=== PATIENT | male | born 1975 | race Two or more races ===

== ENCOUNTER 2025-03-25 16:47 | Emergency (ER) | payer MEDICARE, MEDICAID, SELFPAY ==
[2025-03-25 16:48] VITALS: BP 122/77; PULSE 103; RESP 18; TEMP 36.4; O2SAT 96
[2025-03-25 16:49] VITALS: BMI 30.4
[2025-03-25 16:54] VITALS: PULSE 102; RESP 18; O2SAT 98
--- NOTE | 2025-03-25 18:08 | EKG_ITS ---
[facility] Test Date: 2025-03-25 Pat Name: JEANE MILTON Department: Room: - Gender: Male Supervisor [employer]: : 1975 Requested By: Rubén Lugo Order Number: [id number] Reading MD: Rubén Lugo Measurements Intervals [place] Rate: 104 P: 18 [place]: 150 QRS: 86 QRSD: 153 T: -8 QT: 367 QTc: 484 Interpretive Statements SINUS TACHYCARDIA RIGHT BUNDLE BRANCH BLOCK [120+ ms QRS DURATION, UPRIGHT V1, 40+ ms S IN I/aVL/V4/V5/V6] Compared to ECG 03/04/2024 15:49:55 Left posterior fascicular block no longer present /store/S0/[id number]
--- NOTE | 2025-03-25 18:14 | PD.EDWEAK ---
ED Weakness RME/HPI General Chief complaint: Weakness Stated complaint: LOW BLOOD PRESSURE Time Seen by Provider: 03/25/25 18:15 Arrival date/time: 03/25/25 16:47 RME / HPI RME / HPI Narrative: See [facility] for Dr. Grande's HPI documentation. Related Data Home Medications ?Medication ?Instructions ?Recorded ?Confirmed clozapine 100 mg tablet 200 mg PO DAILY 10/23/23 03/15/24 lisinopril 2.5 mg tablet 2.5 mg PO DAILY 10/23/23 10/23/23 metformin 500 mg tablet 500 mg PO BID 10/23/23 03/15/24 propranolol 10 mg tablet 10 mg PO BID 10/23/23 10/23/23 sertraline 50 mg tablet 50 mg PO DAILY 10/23/23 03/15/24 Previous Rx's ?Medication ?Instructions ?Recorded diazepam 5 mg tablet 5 mg PO BID PRN agitaion #6 tabs 03/05/24 albuterol sulfate 90 mcg/actuation 2 puff inhalation Q6H PRN 03/25/25 aerosol inhaler shortness of breath or wheezing #1 unit magnesium oxide 400 mg PO BID #60 tabs 03/25/25 prednisone 50 mg tablet 50 mg PO QDAY #3 tabs 03/25/25 Allergies Allergy/AdvReac Type Severity Reaction Status Date / Time diphenhydramine Allergy Severe SHAKY AND Verified 03/25/25 16:57 RASH Review of Systems Review of Systems Systems Reviewed: All systems reviewed, normal except as documented Past Medical History Past Medical History CARDIAC: Positive Cardiac Disorders, Hypercholesterolemia and Hypertension; Negative Congestive Heart Failure RESPIRATORY: Negative Chronic Obstructive Pulmonary Disease (COPD) or Asthma GENITOURINARY: Negative Renal Disease ENDOCRINE: Positive Diabetes Mellitus Type 2; Negative Diabetes Mellitus Type 1 HEMATOLOGIC: Negative Sickle Cell Disease PSYCHO/SOCIAL: Positive Schizophrenia Social History SMOKING STATUS: Never smoker ED Exam Narrative Physical exam: See [facility] for Dr. Grande's physical exam documentation. Course Course Course Narrative: CXR is ordered for determining the etiology of weakness. Quality Measures none Orders Category Date Time Status Bedside COVID-19 Antigen Test NOW Care 03/25/25 18:20 Completed Bedside Influenza A&B Antigen Test NOW Care 03/25/25 18:20 Completed EKG (ED ONLY) *Do not use* NOW Care 03/25/25 18:08 Completed Orthostatic Vitals NOW Care 03/25/25 18:20 Completed Saline [Insert IV] NOW Care 03/25/25 18:[address] head/brain wo con Stat Exams 03/25/25 18:21 Completed EKG (ED Only) Stat Exams 03/25/25 18:08 Draft XR chest 1V portable Stat Exams 03/25/25 18:21 Completed Alcohol, Blood Medical Stat Lab 03/25/25 18:45 Completed BNP [B-Type Natriuretic Peptide] Stat Lab 03/25/25 18:45 Completed Bilirubin,Direct Stat Lab 03/25/25 18:45 Completed Blood Culture (Lab) Stat Lab 03/25/25 18:48 Results CBC Stat Lab 03/25/25 18:45 Completed CK [Creatine Kinase] Stat Lab 03/25/25 18:45 Completed CMP [Comprehensive Metabolic Panel] Stat Lab 03/25/25 18:45 Completed CRP [C-Reactive Protein] Stat Lab 03/25/25 18:45 Completed D-Dimer Stat Lab 03/25/25 18:45 Completed ESR [Sed Rate (ESR)] Stat Lab 03/25/25 18:45 Completed Lactate (Lactic Acid) Stat Lab 03/25/25 18:45 Completed Lactic Acid, 3 HR Stat Lab 03/25/25 22:20 Completed Lipase Stat Lab 03/25/25 18:45 Completed Magnesium Stat Lab 03/25/25 18:45 Completed Procalcitonin Stat Lab 03/25/25 18:45 Completed Thyroid Stimulating Hormone Stat Lab 03/25/25 18:45 Completed Troponin I Stat Lab 03/25/25 18:45 Completed Azithromycin Po [Zithromax PO] Med 03/25/25 21:41 Discontinued 500 mg PO X1 ONE Magnesium Sulfate 2 GM Ivpb [Magnesium Sulfate Ivpb] Med 03/25/25 19:41 Discontinued 2 gm in 50 ml IV X1 MethylPREDNISolone.* [SoluMEDROL Inj] Med 03/25/25 21:46 Discontinued 125 mg IVP X1 ONE Ondansetron Inj [Zofran Inj] Med 03/25/25 19:41 Discontinued 4 mg IVP X1 ONE Sodium Chloride 0.9% 1000 ml [Ns] 1,000 ml Med 03/25/25 19:41 Discontinued IV 999 mls/hr Sodium Chloride 0.9% 1000 ml [Ns] 1,000 ml Med 03/25/25 19:41 Discontinued IV 999 mls/hr Vital Signs Vital signs: Vital Signs Temperature 97.6 F 03/25/25 16:48 Pulse Rate 103 H 03/25/25 16:48 Respiratory Rate 18 03/25/25 16:48 Blood Pressure 122/77 03/25/25 16:48 Pulse Oximetry (%) 96 03/25/25 16:48 Oxygen Delivery Method Room Air 03/25/25 16:48 Weakness MDM Narrative MDM Narrative:: This section includes all my notes and documentations, including HPI, PE, and ED course. Rubén Grande MD HPI: 49yo male BIBA with generalized weakness throughout today. When patient's blood pressure was checked today, it was noted to be low. No fever or vomiting. No other complaints reported. ROS: All negative except as documented in HPI. Physical Exam: General: Alert and oriented X 3. Coughing noted. Eyes: Conjunctivae and lids clear. PERRL. EOMI. ENT: No nasal congestion. Neck: Supple. Heart: RRR. Lungs: No respiratory distress. Good air movement with rales. Abdomen: Soft and nontender. Normal bowel sounds. No distension. No rebound or guarding. Skin: Warm and dry. Neuro: Alert and oriented X 3. Cranial nerves II through grossly normal. No peripheral motor deficits. I reviewed all diagnostic test results. My interpretation of the EKG is sinus tachycardia with nonspecific ST-T changes. My interpretation of the chest x-ray is infiltrates. My review of the CT head report is NAD. Blood tests remarkable for WBC 10.9, ESR 49, Lactic Acid 3.3, Mg 1.4. At this point, diagnoses include: Pneumonia Hypomagnesemia Treatment here included: Magnesium IV fluid Zofran Azithromycin Solumedrol Significant improvement noted. Recommended outpatient management. Based on my best medical judgment, made decision no further evaluation or treatment indicated at this time. Patient understands and agrees to the discharge instructions customized and printed, see below. Discharge instructions from Dr. Grande: --After extensive evaluation, there is no life-threatening condition. Such as stroke or heart attack. --But your diagnoses include pneumonia and low magnesium level and dehydration. --No physical exertion for 3 days to help rest the lungs. ?No smoking or exposure to smoking or pets or dust or humidity. --Zithromax to kill the germs causing the pneumonia. --Prednisone to help decrease the swelling in the airways. --Albuterol 2 puffs every 4-6 hours as needed for cough or shortness of breath. --Take magnesium pills as prescribed and increase food rich in magnesium. Such as green and leafy vegetables and peanuts and cashews and almonds. --See a private doctor on 03/29/2025 for recheck and further care. Ask to review all test results and official radiology reports, to make sure you receive all necessary follow-ups and monitoring, including repeat magnesium level. Ask for help until you are completely better. --Seek immediate medical care with worsening or with any concerns. Rubén Grande MD Patient data External records reviewed:: [facility] previous records (Per chart review, patient was seen here on 03/15/25 for SI.) Clinical information provided by:: patient Social determinants that could affect healthcare access:: housing (resides in assisted living) Patient has the following chronic illnesses:: schizophrenia, DM, HTN, HLD How is presenting disease/condition affected by chronic disease/condition?: uneffected by Evaluation data The following diagnostics were reviewed and interpreted by me:: lab results, radiology exam(s) and EKG tracing(s) (My interpretation of the EKG is: Sinus tachycardia (104 bpm) with nonspecific ST-T changes. Rubén Grande MD) Lab and/or radiology exams considered but not ordered:: none Interpretation Summary: I reviewed all diagnostic test results. My interpretation of the EKG is sinus tachycardia with nonspecific ST-T changes. My interpretation of the chest x-ray is atelectasis versus pneumonia left base. My review of the CT head report is NAD. Blood tests remarkable for WBC 10.9, ESR 49, Lactic Acid 3.3, Mg 1.4. Medications / Prescriptions Medications or Prescriptions considered but not ordered:: none Medication administrations:: Medication Administration History Discontinued Medications Azithromycin (Azithromycin 250 Mg Tablet) 500 mg PO X1 ONE Stop: 03/25/25 21:42 Last Admin: 03/25/25 22:23 Dose: 500 mg Documented By: ERIC Magnesium Sulfate (Magnesium Sulfate Ivpb) 2 gm in 50 mls @ 25 mls/hr IV X1 ONE Stop: 03/25/25 21:40 Last Infusion: 03/25/25 22:27 Dose: Infused Documented By: Admin: 03/25/25 19:51 Dose: 25 mls/hr Documented By: ERIC Sodium Chloride (Ns) 1,000 mls @ 999 mls/hr IV .Q1H1M ONE Stop: 03/25/25 20:41 Last Infusion: 03/25/25 22:28 Dose: Infused Documented By: Admin: 03/25/25 19:50 Dose: 999 mls/hr Documented By: SF Sodium Chloride (Ns) 1,000 mls @ 999 mls/hr IV .Q1H1M ONE Stop: 03/25/25 20:41 Last Infusion: 03/25/25 22:28 Dose: Infused Documented By: Admin: 03/25/25 19:51 Dose: 999 mls/hr Documented By: SF Methylprednisolone Sodium Succinate (Methylprednisolone Sod Succ 62.5 Mg/Ml 2ml Vial) 125 mg IVP X1 ONE Stop: 03/25/25 21:47 Last Admin: 03/25/25 22:24 Dose: 125 mg Documented By: ERIC Ondansetron HCl (Ondansetron Inj 2 Mg/Ml Inj 2 Ml) 4 mg IVP X1 ONE; Protocol Stop: 03/25/25 19:42 Last Admin: 03/25/25 19:51 Dose: 4 mg Documented By: ERIC Magnesium, IV fluid, Zofran, Solumedrol, Azithromycin Consultations Consultation(s) initiated? (list below): No Diagnosis Weakness Differential Diagnosis: acute myocardial infarction, anemia, hypoglycemia, hypothyroidism, rhabdomyolysis, sepsis and dehydration Most likely diagnosis given after review of the tests above:: Pneumonia Hypomagnesemia Admission Indicated Admission indicated?: not indicated Explain why admission is indicated or not indicated:: With significant improvement and no condition needing emergent intervention, there was no indication for admission. Admission Request Was there a request for admission?: No Disposition Plan Disposition Plan: Discharge Discharge Attestation Discharge Attestation: The patient and all family members were given an opportunity to ask questions and understood the discharge instructions. Discharge instructions specifically effects, indications for sooner follow up or return to the emergency department, and the expected course of current diagnosis. Patient condition: Stable Discharge Plan Plan Patient Disposition: HOME (Self Care) Prescriptions/Referrals Prescriptions/Med Rec: New prednisone 50 mg tablet 50 mg PO QDAY Qty: 3 0RF albuterol sulfate 90 mcg/actuation HFA aerosol inhaler 2 puff inhalation Q6H PRN (Reason: shortness of breath or wheezing) Qty: 1 0RF magnesium oxide 400 mg magnesium tablet 400 mg PO BID Qty: 60 0RF No Action sertraline 50 mg tablet 50 mg PO DAILY lisinopril 2.5 mg tablet 2.5 mg PO DAILY metformin 500 mg tablet 500 mg PO BID clozapine 100 mg tablet 200 mg PO DAILY Rx Instructions: AT BEDTIME propranolol 10 mg tablet 10 mg PO BID diazepam 5 mg tablet 5 mg PO BID PRN (Reason: agitaion) Qty: 6 0RF Referrals: No Primary/Family,Physician [Primary Care Provider] - In 1 week Problem List Clinical Impression: Pneumonia, Hypomagnesemia Patient/Caregiver Discharge Instructions Discharge Activity: activity as tolerated Education Materials: Magnesium (Blood), ED Pneumonia (Adult) Additional Instructions: Discharge instructions from Dr. Grande: --After extensive evaluation, there is no life-threatening condition. Such as stroke or heart attack. --But your diagnoses include pneumonia and low magnesium level and dehydration. --No physical exertion for 3 days to help rest the lungs. ?No smoking or exposure to smoking or pets or dust or humidity. --Zithromax to kill the germs causing the pneumonia. --Prednisone to help decrease the swelling in the airways. --Albuterol 2 puffs every 4-6 hours as needed for cough or shortness of breath. --Take magnesium pills as prescribed and increase food rich in magnesium. Such as green and leafy vegetables and peanuts and cashews and almonds. --See a private doctor on 03/29/2025 for recheck and further care. Ask to review all test results and official radiology reports, to make sure you receive all necessary follow-ups and monitoring, including repeat magnesium level. Ask for help until you are completely better. --Seek immediate medical care with worsening or with any concerns. Print Language: Bolivian Stand Alone Forms: Mari[employer] Award Info., Patient Portal Info Letter
--- NOTE | 2025-03-25 18:21 | XR_ITS ---
Examination: AP chest single view Technique: AP portable upright chest single view Date and time: March 25, 2025, 1845 hrs., Comparison March 04, 2024 Indications: Shortness of breath chest pain today Findings: Atelectasis versus pneumonia left base Normal heart size Right lung clear. The osseous structures are intact. Impression: Atelectasis versus pneumonia left base, clinical correlation advised.
--- NOTE | 2025-03-25 18:21 | XR_ITS ---
Examination: CT brain head without contrast. 2-D sagittal coronal reconstructions Date and time of exam:March [id number] HRS., Comparison March 04, 2024 Indications: Syncopal episode today, hypertension and headache CTDI: vol (mGy):50.8 DLP: (mGycm):1174 Technique: Multiple CT axial sections of the brain have been obtained, 5 mm slice thickness. Contrast has not been administered. 2-D sagittal, coronal reconstructions have been obtained Low dose protocols were performed. One or more of the following dose reduction techniques were used; automated exposure control, adjustment of the mA and/or KV according to patient size, use of iterative reconstruction technique. Findings: No significant ventricular enlargement. Intra-axial or extra-axial hemorrhage density is not seen. No mass effect or midline shift Basal cisterns are not remarkable. Fourth ventricle is midline. Cranial vault intact. Chronic ethmoid maxillary antral sinusitis Impression: Negative for acute hemorrhage, mass effect or midline shift
[2025-03-25 19:05] LABS: Lactate (Lactic Acid) 3.3 mMol/L (0.4-2.0)
[2025-03-25 19:13] LABS: Basophils # (Auto) 0.0 Thou/mm3 (0.0-0.2); Basophils % (Auto) 0 % (0-2.5); Eosinophils # (Auto) 0.0 Thou/mm3 (0.0-0.5); Eosinophils % (Auto) 0 % (0-10); Hematocrit 33.8 % (41.0-53.0); Hemoglobin 10.9 g/dL (13.5-16.0); Immature Granulocytes Auto 0.06 Thou/mm3 (0.00-0.00); Lymphocytes # (Auto) 2.1 Thou/mm3 (1.0-4.8); Lymphocytes % (Auto) 19 % (10-50); Mean Corpuscular HGB Conc 32.2 g/dl (31.0-37.0); Mean Corpuscular Hemoglobin 26.2 pg (25.0-35.0); Mean Corpuscular Volume 81 fL (80-100); Monocytes # (Auto) 0.8 Thou/mm3 (0.0-0.8); Monocytes % (Auto) 7 % (0-12); Neutrophils # (Auto) 7.9 Thou/mm3 (1.8-7.7); Neutrophils % (Auto) 72 % (37-80); Nucleated Red Blood Cell # 0.00 Thou/mm3 (0.00-0.00); Nucleated Red Blood Cell % 0 /100 WBC (0); Platelet Count 267 Thou/mm3 (140-440); RDW Standard Deviation 46.7 fL (35.1-43.9); Red Blood Count 4.16 Miln/mm3 (4.50-5.90); White Blood Count 10.9 Thou/mm3 (3.8-10.6)
[2025-03-25 19:20] LABS: Sed Rate (ESR) 49 mm/hr (0-20)
[2025-03-25 19:23] LABS: B-Type Natriuretic Peptide 41 pg/mL (0-100)
[2025-03-25 19:32] VITALS: BP 122/102; BP 152/97; BP 156/97; PULSE 109; PULSE 98; PULSE 99
[2025-03-25 19:35] LABS: Alanine Aminotransferase 13 U/L (10-49); Albumin, Serum 4.1 gm/dL (3.5-5.0); Albumin/Globulin Ratio 1.9 (1.2-2.2); Alcohol, Blood Medical < 3.0 mg/dL (0-10.0); Alkaline Phosphatase 142 U/L (46-116); Anion Gap 14 (7-16); Aspartate Amino Transferase 12 U/L (0-34); BUN/Creatinine Ratio 15 Ratio (12-20); Bilirubin,Direct < 0.1 mg/dL (0.0-0.3); Bilirubin,Total 0.3 mg/dL (0.3-1.2); Blood Urea Nitrogen 18 mg/dL (9-23); C-Reactive Protein < 0.5 mg/dL (0.0-0.9); Calcium 9.4 mg/dL (8.3-10.6); Calcium (Corrected) 9.4 mg/dL (8.5-10.1); Carbon Dioxide 22.5 mMol/L (20.0-31.0); Chloride 109 mMol/L (98-107); Creatine Kinase 150 U/L (34-171); Creatinine (Component) 1.2 mg/dL (0.6-1.3); Estimated Creatinine Clearance 79.7 mL/min (>60); Globulin 2.2 gm/dL (2.3-3.5); Glucose 249 mg/dL (74-106); Lipase 30 U/L (12-53); Magnesium 1.4 mg/dL (1.6-2.6); Osmolality,Calculated 298 (275-295); Potassium 4.3 mMol/L (3.4-5.1); Procalcitonin 0.08 ng/ml (0.0-0.49); Sodium 145 mMol/L (136-145); Thyroid Stimulating Hormone 0.85 uIU/mL (0.55-4.78); Total Protein 6.3 gm/dL (5.7-8.2); Troponin I < 0.020 ng/mL (0.0-0.045); eGFR > 60 See Note
[2025-03-25 19:45] LABS: D-Dimer < 250 ng/mL (<600)
[2025-03-25] MEDS: SODIUM CHLORIDE 0.9% 1000 ML 1,000 ML 999 ML IV ×2 (19:50→19:51)
[2025-03-25] MEDS: Magnesium Sulfate 2 GM Ivpb 2 GM/50 ML BAG IV (19:51)
[2025-03-25] MEDS: ONDANSETRON INJ 2 MG/ML INJ 2 ML 4 MG IVP (19:51)
[2025-03-25 20:48] VITALS: BP 154/94; PULSE 99; RESP 19; TEMP 36.4; O2SAT 98
[2025-03-25 22:00] LABS: Reflex Lactate? Y
[2025-03-25] MEDS: AZITHROMYCIN 250 MG TABLET 500 MG PO (22:23)
[2025-03-25] MEDS: MethylPREDNISolone SOD SUCC 62.5 MG/ML 2ML VIAL 125 MG IVP (22:24)
[2025-03-25 22:30] VITALS: BP 133/94; PULSE 99; RESP 19; TEMP 36.6; O2SAT 98
[2025-03-25 22:36] LABS: Lactic Acid, 3 HR 1.8 mMol/L (0.4-2.0)
== END 2025-03-25 22:41 | disposition home or self-care (01) ==
PROVIDERS: Emergency Provider Emergency Medicine
DX: J18.9 Pneumonia, unspecified organism (principal); E83.42 Hypomagnesemia; R00.0 Tachycardia, unspecified; I10 Essential (primary) hypertension; E11.9 Type 2 diabetes mellitus without complications
CPT/HCPCS: 36415; 70450; 71045; 80053; 80307; 80320; 81001; 82248; 82550; 83605; 83690; 83735; 83880; 84145; 84443; 84484; 85025; 85379; 85652; 86140; 87040; 87400; 87811; 93005; 96365; 96366; 96375; 99284; J2405; J2919; J3475; J7030; A9270; G0480

== ENCOUNTER 2025-04-12 11:54 | Emergency (ER) | payer MEDICARE, MEDICAID, SELFPAY ==
--- NOTE | 2025-04-12 11:58 | EKG_ITS ---
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
--- NOTE | 2025-04-12 11:58 | PD.EDADULT ---
ED General RME/HPI General Chief complaint: Dizziness Stated complaint: DIZZINESS Time Seen by Provider: 04/12/25 11:58 Arrival date/time: 04/12/25 11:54 CC: Dizziness HPI onset sometime this morning, patient states he is worse when he sits up or stands up. Patient is coming from [facility] via EMS who reported a pressure of 100/60 with a heart rate in the 80s, and a blood glucose of 167. Patient states no prior history of similar events. Patient initially reports to EMS that he got dizzy when he sat up after eating lunch, then when I interviewed him he states he was dizzy at the lunch table then the story changed the third time till he was dizzy before eating lunch. Patient is awake alert oriented state he has chronic back pain and normally ambulates without complication. Patient denies chest pain shortness of breath. Related Data Home Medications ?Medication ?Instructions ?Recorded ?Confirmed clozapine 100 mg tablet 200 mg PO DAILY 10/23/23 03/15/24 lisinopril 2.5 mg tablet 2.5 mg PO DAILY 10/23/23 10/23/23 metformin 500 mg tablet 500 mg PO BID 10/23/23 03/15/24 propranolol 10 mg tablet 10 mg PO BID 10/23/23 10/23/23 sertraline 50 mg tablet 50 mg PO DAILY 10/23/23 03/15/24 Previous Rx's ?Medication ?Instructions ?Recorded diazepam 5 mg tablet 5 mg PO BID PRN agitaion #6 tabs 03/05/24 albuterol sulfate 90 mcg/actuation 2 puff inhalation Q6H PRN 03/25/25 aerosol inhaler shortness of breath or wheezing #1 unit magnesium oxide 400 mg PO BID #60 tabs 03/25/25 prednisone 50 mg tablet 50 mg PO QDAY #3 tabs 03/25/25 Allergies Allergy/AdvReac Type Severity Reaction Status Date / Time diphenhydramine Allergy Severe SHAKY AND Verified 03/25/25 16:57 RASH Review of Systems Review of Systems Narrative Review of Systems: GEN: No fever, no chills, no weight loss EYES: No discharge, no visual changes, no pain HEENT: No ear pain, no congestion, no sore throat PULM: No shortness of breath, no cough, no congestion CV: No chest pain, no dyspnea on exertion, no palpitations GI: No nausea, no vomiting, no diarrhea, no pain, no constipation : No frequency, no urgency, no dysuria MUSC/SKEL: No joint pain, no back pain SKIN: No rash PSYCH: No hallucinations, no depression HEME/LYMPH: No easy bleeding or bruising tendencies NEURO: No weakness, no headache, +dizziness Past Medical History Past Medical History CARDIAC: Positive Cardiac Disorders, Hypercholesterolemia and Hypertension; Negative Congestive Heart Failure RESPIRATORY: Negative Chronic Obstructive Pulmonary Disease (COPD) or Asthma GENITOURINARY: Negative Renal Disease ENDOCRINE: Positive Diabetes Mellitus Type 2; Negative Diabetes Mellitus Type 1 HEMATOLOGIC: Negative Sickle Cell Disease PSYCHO/SOCIAL: Positive Schizophrenia Social History SMOKING STATUS: Never smoker ED Exam Narrative Physical exam: [General: Appears not in any acute distress Head normocephalic HEENT: Eyes pupils are PERRLA EOMs are intact no vertical or horizontal nystagmus. Mouth pink dry membranes uvula is midline swallow with symmetrical all of the subsystems of HEENT are within acceptable limits Neck is supple nontender Chest equal chest rise nontender to palpation Respiratory: Clear to auscultation no wheezes crackles or rubs CV: Rate rhythm is regular no murmurs rubs or clicks Abdomen is distended secondary to body habitus soft nontender no masses positive bowel sounds all 4 quadrants Back: No CVA tenderness no spinous process tenderness from cervical spine thoracic and lumbar spine Skin: Intact no petechiae rash induration ulceration or crepitus Extremities: Moving all extremity against resistance cap refill less than 2 seconds neurosensory intact Neuro: Awake alert oriented x3 Glascow coma 15 no focal deficits] cranial nerves II through XII are grossly intact. Course Course Course Narrative: Review of the emergency room medical record show the patient has a large number of visits for psychiatric complaints as well as nonlethal complaints. Patient reassessed at 1415, all dizziness has resolved. Patient was able to sit up without complications laboratory results are wholly unremarkable patient will be discharged home with vertigo. Quality Measures none Orders Category Date Time Status EKG (ED ONLY) *Do not use* NOW Care 04/12/25 11:58 Completed EKG (ED Only) Stat Exams 04/12/25 11:58 Draft B-Type Natriuretic Peptide Stat Lab 04/12/25 12:14 Completed CBC Stat Lab 04/12/25 12:14 Completed Comprehensive Metabolic Panel Stat Lab 04/12/25 12:14 Completed Drug Screen,Urine Stat Lab 04/12/25 11:58 Ordered LDH (Lactate Dehydrogenase) Stat Lab 04/12/25 12:14 Completed Magnesium Stat Lab 04/12/25 12:14 Completed Partial Thromboplastin Time Stat Lab 04/12/25 12:14 Completed Prothrombin Time with INR Stat Lab 04/12/25 12:14 Completed Troponin I Stat Lab 04/12/25 12:14 Completed Urinalysis, C/S if Indicated Stat Lab 04/12/25 11:58 Ordered Vital Signs Vital signs: Vital Signs Temperature 97.4 F 04/12/25 12:26 Pulse Rate 92 04/12/25 12:26 Respiratory Rate 17 04/12/25 12:26 Blood Pressure 112/73 04/12/25 12:26 Pulse Oximetry (%) 93 L 04/12/25 12:26 Oxygen Delivery Method Room Air 04/12/25 12:26 Discharge Plan Plan Patient Disposition: HOME (Self Care) Patient condition on transfer: Stable Prescriptions/Referrals Prescriptions/Med Rec: No Action sertraline 50 mg tablet 50 mg PO DAILY lisinopril 2.5 mg tablet 2.5 mg PO DAILY metformin 500 mg tablet 500 mg PO BID clozapine 100 mg tablet 200 mg PO DAILY Rx Instructions: AT BEDTIME propranolol 10 mg tablet 10 mg PO BID diazepam 5 mg tablet 5 mg PO BID PRN (Reason: agitaion) Qty: 6 0RF prednisone 50 mg tablet 50 mg PO QDAY Qty: 3 0RF albuterol sulfate 90 mcg/actuation HFA aerosol inhaler 2 puff inhalation Q6H PRN (Reason: shortness of breath or wheezing) Qty: 1 0RF magnesium oxide 400 mg magnesium tablet 400 mg PO BID Qty: 60 0RF Problem List Clinical Impression: Vertigo, Hyperglycemia due to diabetes mellitus Patient/Caregiver Discharge Instructions Education Materials: ED BPV Vertigo Print Language: Mongolian Stand Alone Forms: [employer] Award Info., Patient Portal Info Letter PA/IMPLEMENTATION ANALYST Supervising Physician PA/IMPLEMENTATION ANALYST Supervising Physician: Demetrius Arevalo ENP [facility] Clinical Information Provided by: patient and EMS Medical Records reviewed [facility] and EMS Meds/Rx considered, not ordered None Labs/Rad/Tests considered, not ordered None Chronic Illness/Social Conditions Explain: Schizophrenia diabetic EKG Interpretation EKG #1: EKG Interpretation: EKG performed at 1234 shows a ventricular rate of 92 TN interval 146 QRS of 154 QTc of 432 this is sinus rhythm right bundle branch block. Labs Labs: interpreted by me Lab(s) Interpretation(s): CBC shows no leukocytosis and H&H of 11.4 and 36.5 note: When reviewed with all laboratory results this is a chronic but stable anemia. No thrombocytopenia Coags within acceptable limits CMP shows glucose of 215 no other electrolyte imbalances no renal impairment. Alk phos at 155 no other transaminitis or T. bili elevation Troponin is negative BNP is within acceptable limits Imaging Imaging interpretation: interpreted by me
[2025-04-12 12:24] VITALS: PULSE 88; RESP 20
[2025-04-12 12:24] LABS: Basophils # (Auto) 0.0 Thou/mm3 (0.0-0.2); Basophils % (Auto) 0 % (0-2.5); Eosinophils # (Auto) 0.0 Thou/mm3 (0.0-0.5); Eosinophils % (Auto) 0 % (0-10); Hematocrit 36.5 % (41.0-53.0); Hemoglobin 11.4 g/dL (13.5-16.0); Immature Granulocytes Auto 0.05 Thou/mm3 (0.00-0.00); Lymphocytes # (Auto) 2.1 Thou/mm3 (1.0-4.8); Lymphocytes % (Auto) 21 % (10-50); Mean Corpuscular HGB Conc 31.2 g/dl (31.0-37.0); Mean Corpuscular Hemoglobin 26.1 pg (25.0-35.0); Mean Corpuscular Volume 84 fL (80-100); Monocytes # (Auto) 0.7 Thou/mm3 (0.0-0.8); Monocytes % (Auto) 8 % (0-12); Neutrophils # (Auto) 6.9 Thou/mm3 (1.8-7.7); Neutrophils % (Auto) 71 % (37-80); Nucleated Red Blood Cell # 0.00 Thou/mm3 (0.00-0.00); Nucleated Red Blood Cell % 0 /100 WBC (0); Platelet Count 270 Thou/mm3 (140-440); RDW Standard Deviation 46.8 fL (35.1-43.9); Red Blood Count 4.36 Miln/mm3 (4.50-5.90); White Blood Count 9.7 Thou/mm3 (3.8-10.6)
[2025-04-12 12:26] VITALS: BP 112/73; PULSE 92; RESP 17; TEMP 36.3; O2SAT 93
[2025-04-12 12:41] LABS: B-Type Natriuretic Peptide 23 pg/mL (0-100)
[2025-04-12 12:46] LABS: Alanine Aminotransferase 12 U/L (10-49); Albumin, Serum 4.2 gm/dL (3.5-5.0); Albumin/Globulin Ratio 1.8 (1.2-2.2); Alkaline Phosphatase 155 U/L (46-116); Anion Gap 9 (7-16); Aspartate Amino Transferase 12 U/L (0-34); BUN/Creatinine Ratio 16 Ratio (12-20); Bilirubin,Total 0.3 mg/dL (0.3-1.2); Blood Urea Nitrogen 16 mg/dL (9-23); Calcium 9.3 mg/dL (8.3-10.6); Calcium (Corrected) 9.3 mg/dL (8.5-10.1); Carbon Dioxide 26.8 mMol/L (20.0-31.0); Chloride 107 mMol/L (98-107); Creatinine (Component) 1.0 mg/dL (0.6-1.3); Globulin 2.3 gm/dL (2.3-3.5); Glucose 215 mg/dL (74-106); LDH (Lactate Dehydrogenase) 107 U/L (120-246); Magnesium 1.8 mg/dL (1.6-2.6); Osmolality,Calculated 292 (275-295); Potassium 4.4 mMol/L (3.4-5.1); Sodium 143 mMol/L (136-145); Total Protein 6.5 gm/dL (5.7-8.2); Troponin I < 0.002 ng/mL (0.0-0.045); eGFR > 60 See Note
[2025-04-12 12:48] LABS: INR 1.0 (0.9-1.3); Partial Thromboplastin Time 27.7 Seconds (22.0-36.0); Prothrombin Time 10.8 Seconds (9.0-12.2)
[2025-04-12 15:25] VITALS: BP 137/89; PULSE 84; RESP 16; TEMP 36.7; O2SAT 98
== END 2025-04-12 15:26 | disposition home or self-care (01) ==
LOC: SERX 14:33
PROVIDERS: Registered Nurse General Practice; Emergency Provider Emergency Medicine
DX: E11.65 Type 2 diabetes mellitus with hyperglycemia (principal); E78.00 Pure hypercholesterolemia, unspecified; I10 Essential (primary) hypertension; F20.9 Schizophrenia, unspecified; Z88.8 Allergy status to other drugs, medicaments and biological substances
CPT/HCPCS: 36415; 80053; 80307; 81001; 83615; 83735; 83880; 84484; 85025; 85610; 85730; 93005; 99283